=== PATIENT | female | born 1990 | race Caucasian/White ===

== ENCOUNTER 2017-09-06 15:17 | Emergency (ER) | payer OTHER ==
[~2017-09-06] VITALS: Ht 170.2 cm; Wt 77.1 kg
[~2017-09-06 15:17] MED LIST: ACETAMINOPHEN-1 EAC1 PO; ADDERALL 10 MG10 MG PO; AMOXICILLIN 50500 MG PO; ASTEPRO205.5 MCG/ NS; AZITHROMYCIN 2250 MG PO; BACTRIM DS TAB1 EACH PO; BENADRYL25 MG PO; BUTALB-APAP-CA1 EACH PO; CELEXA 20 MG TA20 M1; CIPRO500 MG PO; CLONAZEPAM; CLONAZEPAM 1 MG1 M1 PO; CYCLOBENZAPRINE5 MG PO; DOXYCYCLINE 10100 MG PO; FLAGYL500 MG PO; FLEXERIL PO; FLONASE NS; HYDROCODONE-AP1 EAC6 PO; IBUPROFEN 600600 M1 PO; IBUPROFEN 800800 M1 PO; IBUPROFEN 800800 MG PO; KEFLEX500 M1 PO; KLONAPIN; MACROBID 100 M100 M1 PO; NOHOMEMEDICATIONS; NORCO 5-325 TA1 EAC1 PO; NORCO 5-325 TA1 EACH PO; OXYCODONE-APAP1 EAC4 PO; PENICILLIN VK500 M1 PO; POTASSIUM CHLO20 ME1 PO; PREDNISONE 20 M20 M1 PO; PRENATAL; PRENATE PLUS T1 EACH PO; PROMETHAZINE-D120 ML PO; RITALIN5 MG PO; ROBAXIN 750 MG750 M1 PO; TRAZODONE HCL100 MG; ULTRAM 50MG TAB50 MG PO; VICODIN; WELLBUTRIN XL150 MG PO; ZOFRAN4 MG PO; ZPAK PO
[2017-09-06] MEDS ORDERED: TRAZODONE HCL50 MG PO (15:33)
[2017-09-06 15:40] LABS: URINE BILIRUBIN NEGATIVE (Negative); URINE BLOOD NEGATIVE (Negative); URINE CLARITY CLEAR; URINE COLOR YELLOW; URINE GLUCOSE-RANDOM NEGATIVE (Negative); URINE KETONES TRACE (Negative); URINE LEUKOCYTES-REFLEX NEGATIVE (Negative); URINE NITRITE-REFLEX NEGATIVE (Negative); URINE PROTEIN NEGATIVE (Negative); URINE SPECIFIC GRAVITY 1.015 (1.005-1.030)
[2017-09-06] MEDS ORDERED: FLAGYL500 MG PO (15:55)
[2017-09-06 16:04] VITALS: BP 102/54
== END 2017-09-06 16:05 | disposition home or self-care (01) ==
LOC: M.ERS 15:17
PROVIDERS: Nurse Practitioner Family
DX: N76.0 Acute vaginitis (principal); G43.909 Migraine, unspecified, not intractable, without status migrainosus; F41.9 Anxiety disorder, unspecified

== ENCOUNTER 2017-09-23 12:36 | Emergency (ER) | payer OTHER ==
[~2017-09-23] VITALS: Ht 170.2 cm; Wt 77.1 kg
[~2017-09-23 12:36] MED LIST changes: +TRAZODONE HCL50 MG PO
[2017-09-23] MEDS ORDERED: COLACE100 MG PO (12:55)
[2017-09-23] MEDS ORDERED: HYDROCODONE-AP1 EAC6 PO (12:55)
[2017-09-23] MEDS ORDERED: IBUPROFEN 800800 M1 PO (12:55)
[2017-09-23] MEDS ORDERED: BACTRIM DS TAB1 EACH PO (12:55)
[2017-09-23 13:26] VITALS: BP 110/76
[2017-09-24] MEDS ORDERED: IBUPROFEN 600600 M1 PO (06:15)
== END 2017-09-23 13:26 | disposition home or self-care (01) ==
LOC: M.ERS 12:36
DX: L02.31 Cutaneous abscess of buttock (principal); F41.9 Anxiety disorder, unspecified; G43.909 Migraine, unspecified, not intractable, without status migrainosus; Z88.0 Allergy status to penicillin; Z88.8 Allergy status to other drugs, medicaments and biological substances

== ENCOUNTER 2017-09-24 05:40 | Emergency (ER) | payer OTHER ==
[~2017-09-24] VITALS: Ht 170.2 cm; Wt 77.1 kg
[~2017-09-24 05:40] MED LIST changes: +COLACE100 MG PO
[2017-09-24] MEDS ORDERED: IBUPROFEN 600600 M1 PO (06:15)
[2017-09-24 06:22] VITALS: BP 106/58
== END 2017-09-24 06:23 | disposition home or self-care (01) ==
LOC: M.ERS 05:40
DX: L03.317 Cellulitis of buttock (principal); F41.9 Anxiety disorder, unspecified; G43.909 Migraine, unspecified, not intractable, without status migrainosus; Z88.0 Allergy status to penicillin; Z88.8 Allergy status to other drugs, medicaments and biological substances

== ENCOUNTER 2017-12-10 14:34 | Emergency (ER) | payer OTHER ==
[~2017-12-10] VITALS: Ht 170.2 cm; Wt 80.7 kg
[2017-12-10 14:59] LABS: URINE BILIRUBIN NEGATIVE (Negative); URINE BLOOD NEGATIVE (Negative); URINE CLARITY CLEAR; URINE COLOR YELLOW; URINE GLUCOSE-RANDOM NEGATIVE (Negative); URINE KETONES NEGATIVE (Negative); URINE LEUKOCYTES-REFLEX NEGATIVE (Negative); URINE NITRITE-REFLEX NEGATIVE (Negative); URINE PROTEIN NEGATIVE (Negative); URINE SPECIFIC GRAVITY 1.025 (1.005-1.030); URINE UROBILINOGEN 0.2 E.U./dl (0.2-1.0)
[2017-12-10] MEDS ORDERED: TRAMADOL 50 MG50 MG PO (15:46)
[2017-12-10] MEDS ORDERED: FLAGYL500 MG PO (15:46)
[2017-12-10 15:54] VITALS: BP 121/73
== END 2017-12-10 15:55 | disposition home or self-care (01) ==
LOC: M.ERS 14:34
PROVIDERS: Physician Assistant
DX: M25.521 Pain in right elbow (principal); F41.9 Anxiety disorder, unspecified; G43.909 Migraine, unspecified, not intractable, without status migrainosus; Z88.0 Allergy status to penicillin; Z88.8 Allergy status to other drugs, medicaments and biological substances

== ENCOUNTER 2018-08-05 23:47 | Emergency (ER) | payer OTHER ==
[~2018-08-05] VITALS: Ht 170.2 cm; Wt 83.9 kg
[~2018-08-05 23:47] MED LIST changes: +TRAMADOL 50 MG50 MG PO
[2018-08-05] MEDS ORDERED: TRAZODONE HCL50 MG PO (23:57)
[2018-08-06] MEDS ORDERED: NABUMETONE 750750 M1 PO (01:31)
[2018-08-06 01:44] VITALS: BP 122/64
== END 2018-08-06 01:44 | disposition home or self-care (01) ==
LOC: M.ERS 23:47
DX: S93.491A Sprain of other ligament of right ankle, initial encounter (principal); F41.9 Anxiety disorder, unspecified; G43.909 Migraine, unspecified, not intractable, without status migrainosus; F90.9 Attention-deficit hyperactivity disorder, unspecified type; Z98.890 Other specified postprocedural states; Z88.0 Allergy status to penicillin; Z88.8 Allergy status to other drugs, medicaments and biological substances; W18.39XA Other fall on same level, initial encounter; Y93.89 Activity, other specified; Y92.89 Other specified places as the place of occurrence of the external cause; Y99.8 Other external cause status

== ENCOUNTER 2018-08-27 09:57 | Emergency (ER) | payer OTHER ==
[~2018-08-27] VITALS: Ht 170.2 cm; Wt 83.5 kg
[~2018-08-27 09:57] MED LIST changes: +NABUMETONE 750750 M1 PO
[2018-08-27 10:00] VITALS: BP 112/65
[2018-08-27] MEDS ORDERED: AZITHROMYCIN500 MG PO (10:45)
== END 2018-08-27 10:57 | disposition home or self-care (01) ==
LOC: M.ERS 09:57
DX: J02.0 Streptococcal pharyngitis (principal); F41.9 Anxiety disorder, unspecified; G43.909 Migraine, unspecified, not intractable, without status migrainosus; Z88.0 Allergy status to penicillin; Z88.8 Allergy status to other drugs, medicaments and biological substances

== ENCOUNTER 2018-09-14 12:51 | Emergency (ER) | payer OTHER ==
[~2018-09-14] VITALS: Ht 170.2 cm; Wt 84.8 kg
[~2018-09-14 12:51] MED LIST changes: +AZITHROMYCIN500 MG PO
[2018-09-14] MEDS ORDERED: ANUSOL-HC25 MG RECTAL (13:20)
[2018-09-14] MEDS ORDERED: COLACE100 MG PO (13:20)
[2018-09-14] MEDS ORDERED: BACTRIM DS TAB1 EACH PO (13:20)
[2018-09-14 13:45] VITALS: BP 112/69
[2018-09-14] MEDS ORDERED: FLAGYL500 M1 PO (19:30)
[2018-09-14] MEDS ORDERED: ANUCORT-HC25 MG RECTAL (19:31)
[2018-09-14] MEDS ORDERED: NORCO 5-325 TA1 EACH PO (19:32)
== END 2018-09-14 13:46 | disposition home or self-care (01) ==
LOC: M.ERS 12:51
DX: K60.2 Anal fissure, unspecified (principal); K64.4 Residual hemorrhoidal skin tags; F41.9 Anxiety disorder, unspecified; G43.909 Migraine, unspecified, not intractable, without status migrainosus; Z88.0 Allergy status to penicillin; Z88.8 Allergy status to other drugs, medicaments and biological substances

== ENCOUNTER 2018-09-14 19:12 | Emergency (ER) | payer OTHER ==
[~2018-09-14] VITALS: Ht 170.2 cm; Wt 84.8 kg
[~2018-09-14 19:12] MED LIST changes: +ANUSOL-HC25 MG RECTAL
[2018-09-14] MEDS ORDERED: FLAGYL500 M1 PO (19:30)
[2018-09-14] MEDS ORDERED: ANUCORT-HC25 MG RECTAL (19:31)
[2018-09-14] MEDS ORDERED: NORCO 5-325 TA1 EACH PO (19:32)
== END 2018-09-14 19:54 | disposition home or self-care (01) ==
LOC: M.ERS 19:12
DX: K64.9 Unspecified hemorrhoids (principal); K60.2 Anal fissure, unspecified

== ENCOUNTER 2019-02-08 17:55 | Emergency (ER) | payer OTHER ==
[~2019-02-08] VITALS: Ht 170.2 cm; Wt 84.8 kg
[~2019-02-08 17:55] MED LIST changes: +ANUCORT-HC25 MG RECTAL; +FLAGYL500 M1 PO
[2019-02-08] MEDS ORDERED: WELLBUTRIN XL300 MG PO (18:08)
[2019-02-08 18:12] LABS: URINE BILIRUBIN NEGATIVE (Negative); URINE BLOOD NEGATIVE (Negative); URINE CLARITY CLEAR; URINE COLOR YELLOW; URINE GLUCOSE-RANDOM NEGATIVE (Negative); URINE KETONES NEGATIVE (Negative); URINE LEUKOCYTES-REFLEX NEGATIVE (Negative); URINE NITRITE-REFLEX NEGATIVE (Negative); URINE PROTEIN NEGATIVE (Negative); URINE SPECIFIC GRAVITY 1.015 (1.005-1.030)
[2019-02-08 18:26] VITALS: BP 128/73
== END 2019-02-08 18:27 | disposition home or self-care (01) ==
LOC: M.ERS 17:55
PROVIDERS: Family Medicine
DX: R30.0 Dysuria (principal); R35.0 Frequency of micturition; F41.9 Anxiety disorder, unspecified; G43.909 Migraine, unspecified, not intractable, without status migrainosus; Z88.0 Allergy status to penicillin; Z88.8 Allergy status to other drugs, medicaments and biological substances; Z98.51 Tubal ligation status

== ENCOUNTER 2019-02-22 21:41 | Emergency (ER) | payer OTHER ==
[~2019-02-22] VITALS: Ht 170.2 cm; Wt 83.9 kg
[~2019-02-22 21:41] MED LIST changes: +WELLBUTRIN XL300 MG PO
[2019-02-22] MEDS ORDERED: ZPAK PO (21:52)
[2019-02-22 21:57] VITALS: BP 137/69
== END 2019-02-22 22:02 | disposition home or self-care (01) ==
LOC: M.ERS 21:41
DX: J01.80 Other acute sinusitis (principal); B96.89 Other specified bacterial agents as the cause of diseases classified elsewhere; G43.909 Migraine, unspecified, not intractable, without status migrainosus; F41.9 Anxiety disorder, unspecified; Z88.0 Allergy status to penicillin; Z88.8 Allergy status to other drugs, medicaments and biological substances

== ENCOUNTER 2019-04-06 13:59 | Emergency (ER) | payer OTHER ==
[~2019-04-06] VITALS: Ht 170.2 cm; Wt 83.9 kg
[2019-04-06] MEDS ORDERED: ZPAK PO (14:18)
[2019-04-06] MEDS ORDERED: PERMETHRIN60 GM TOP (14:18)
[2019-04-06 14:25] VITALS: BP 125/84
== END 2019-04-06 14:27 | disposition home or self-care (01) ==
LOC: M.ERS 13:59
DX: J01.00 Acute maxillary sinusitis, unspecified (principal); B86 Scabies; F41.9 Anxiety disorder, unspecified; G43.909 Migraine, unspecified, not intractable, without status migrainosus; F90.9 Attention-deficit hyperactivity disorder, unspecified type; Z88.0 Allergy status to penicillin; Z88.8 Allergy status to other drugs, medicaments and biological substances; Z98.51 Tubal ligation status

== ENCOUNTER 2019-05-02 17:26 | Emergency (ER) | payer OTHER ==
[~2019-05-02] VITALS: Ht 170.2 cm; Wt 83.9 kg
[~2019-05-02 17:26] MED LIST changes: +PERMETHRIN60 GM TOP
[2019-05-02 19:27] VITALS: BP 143/62
== END 2019-05-02 19:28 | disposition home or self-care (01) ==
LOC: M.ERS 17:26
DX: S16.1XXA Strain of muscle, fascia and tendon at neck level, initial encounter (principal); S40.021A Contusion of right upper arm, initial encounter; G43.909 Migraine, unspecified, not intractable, without status migrainosus; F90.9 Attention-deficit hyperactivity disorder, unspecified type; F41.9 Anxiety disorder, unspecified; Z98.51 Tubal ligation status; Z88.0 Allergy status to penicillin; Z88.8 Allergy status to other drugs, medicaments and biological substances; Y04.0XXA Assault by unarmed brawl or fight, initial encounter; Y93.89 Activity, other specified; Y92.89 Other specified places as the place of occurrence of the external cause; Y99.8 Other external cause status

== ENCOUNTER 2019-08-04 16:05 | Emergency (ER) | payer OTHER ==
[~2019-08-04] VITALS: Ht 170.2 cm; Wt 86.2 kg
[2019-08-04] MEDS ORDERED: FLEXERIL PO (16:18)
[2019-08-04] MEDS ORDERED: NAPROSYN500 MG PO ×2 (16:18)
[2019-08-04] MEDS ORDERED: CYCLOBENZAPRINE5 MG PO ×2 (16:25)
[2019-08-04] MEDS ORDERED: NABUMETONE 750750 M1 PO (16:25)
[2019-08-04 16:46] VITALS: BP 122/79
[2019-08-04] MEDS ORDERED: LORCET 5-325 M1 EACH PO (22:59)
== END 2019-08-04 16:46 | disposition home or self-care (01) ==
LOC: M.ERS 16:05
DX: S93.491A Sprain of other ligament of right ankle, initial encounter (principal); G43.909 Migraine, unspecified, not intractable, without status migrainosus; F17.210 Nicotine dependence, cigarettes, uncomplicated; Z98.51 Tubal ligation status; Z88.0 Allergy status to penicillin; Z88.8 Allergy status to other drugs, medicaments and biological substances; V89.2XXA Person injured in unspecified motor-vehicle accident, traffic, initial encounter; Y93.89 Activity, other specified; Y92.89 Other specified places as the place of occurrence of the external cause; Y99.8 Other external cause status

== ENCOUNTER 2019-08-04 22:09 | Emergency (ER) | payer OTHER ==
[~2019-08-04] VITALS: Ht 170.2 cm; Wt 86.2 kg
[~2019-08-04 22:09] MED LIST changes: +NAPROSYN500 MG PO
[2019-08-04] MEDS ORDERED: LORCET 5-325 M1 EACH PO (22:59)
[2019-08-04 23:19] VITALS: BP 112/69
== END 2019-08-04 23:22 | disposition home or self-care (01) ==
LOC: M.ERS 22:09
DX: S93.491A Sprain of other ligament of right ankle, initial encounter (principal); F41.9 Anxiety disorder, unspecified; G43.909 Migraine, unspecified, not intractable, without status migrainosus; F17.290 Nicotine dependence, other tobacco product, uncomplicated; F90.9 Attention-deficit hyperactivity disorder, unspecified type; Z88.0 Allergy status to penicillin; V89.2XXA Person injured in unspecified motor-vehicle accident, traffic, initial encounter; Y92.89 Other specified places as the place of occurrence of the external cause; Y93.89 Activity, other specified; Y99.8 Other external cause status

== ENCOUNTER 2019-08-27 17:52 | Emergency (ER) | payer OTHER ==
[~2019-08-27] VITALS: Ht 170.2 cm; Wt 86.2 kg
[~2019-08-27 17:52] MED LIST changes: +LORCET 5-325 M1 EACH PO
[2019-08-27 19:05] LABS: INFLUENZA A ANTIGEN Negative (Negative); INFLUENZA B ANTIGEN Negative (Negative)
[2019-08-27 20:00] VITALS: BP 136/66
== END 2019-08-27 21:24 | disposition home or self-care (01) ==
LOC: M.ERS 17:52
PROVIDERS: Nurse Practitioner Family
DX: J06.9 Acute upper respiratory infection, unspecified (principal); G43.909 Migraine, unspecified, not intractable, without status migrainosus; F17.210 Nicotine dependence, cigarettes, uncomplicated; Z88.0 Allergy status to penicillin; Z88.8 Allergy status to other drugs, medicaments and biological substances; Z98.51 Tubal ligation status

== ENCOUNTER 2020-05-10 16:08 | Emergency (ER) | payer OTHER ==
[~2020-05-10] VITALS: Ht 170.2 cm; Wt 88.5 kg
[2020-05-10 16:14] VITALS: BP 140/87
[2020-05-10] MEDS ORDERED: AMOXICILLIN 50500 MG PO (16:33)
== END 2020-05-10 16:37 | disposition home or self-care (01) ==
LOC: M.ERS 16:08
DX: J02.0 Streptococcal pharyngitis (principal); G43.909 Migraine, unspecified, not intractable, without status migrainosus; Z88.0 Allergy status to penicillin; Z88.8 Allergy status to other drugs, medicaments and biological substances; Z98.51 Tubal ligation status